=== PATIENT | male | born 1980 | race Caucasian/White ===

== ENCOUNTER 2021-03-18 19:41 | Emergency (ER) | payer MEDICAID, OTHER ==
[~2021-03-18] VITALS: Ht 170.2 cm; Wt 93.4 kg
[~2021-03-18 19:41] MED LIST: ASPITAB34; NORPTMEDS CO
[2021-03-18] MEDS ORDERED: KETOROLAC TROMETH 60MG/2ML VIAL IM ONE (20:45)
[2021-03-18 22:40] VITALS: BP 135/95
== END 2021-03-18 22:52 | disposition home or self-care (01) ==
LOC: ER 19:41
DX: M25.512 Pain in left shoulder (principal); M54.6 Pain in thoracic spine; M79.18 Myalgia, other site; Z87.891 Personal history of nicotine dependence; V43.52XA Car driver injured in collision with other type car in traffic accident, initial encounter; Y93.89 Activity, other specified; Y92.89 Other specified places as the place of occurrence of the external cause; Y99.8 Other external cause status
CPT/HCPCS: 72040; 72070; 73000; 73030; 73060; 96372; 99284; J1885